=== PATIENT | male | born 1985 ===

== ENCOUNTER 2022-04-29 13:04 | Emergency (ER) | payer OTHER ==
[2022-04-29 14:23] VITALS: TEMP 98.2
--- NOTE | 2022-04-29 15:59 | ED ---
General Adult HPI - General Chief complaint: Psychiatric Symptoms Stated complaint: foot pain Time Seen by Provider: 04/29/22 15:45 Source: patient, RN notes reviewed, old records reviewed Mode of arrival: EMS Limitations: no limitations - History of Present Illness Initial comments: This is a 37 year old male presents emergency department stating that he is multi-substance abuser. Patient states he was a cigarette for 4 days he decided that they were helping enough so he just packed up his stuff and left. Patient states then he uses phone and called 911 to come to the hospital because he wants us to do his rehabilitation here. Patient has no complaint other than he has a callus on the back of his right heel. Patient states that's from walk around on the backs of his shoes. Patient denies any other problems or symptoms. Patient states not homicidal or suicidal. Patient denies delusions or any hallucinations. Patient is alert and oriented 3 - Related Data Allergies Allergy/AdvReac Type Severity Reaction Status Date / Time risperidone [From Risperdal] AdvReac Rash/Hives Verified 04/29/22 14:23 Review of Systems ROS Statement: Those systems with pertinent positive or pertinent negative responses have been documented in the HPI. ROS Other: All systems not noted in ROS Statement are negative. Past Medical History Past Medical History: Hypertension Past Surgical History: No Surgical Hx Reported, Adenoidectomy, Tonsillectomy Past Psychological History: Bipolar Smoking Status: Current every day smoker, Heavy tobacco smoker, Vaper Past Alcohol Use History: None Reported Past Drug Use History: Cocaine, Heroin, IV Drug Use, Marijuana, Methamphetamine, Opiates, Prescription Drug Abuse General Exam - General Exam Comments Initial Comments: GENERAL: Patient is well-developed and well-nourished. Patient is nontoxic and well- hydrated and is in no acute distress. ENT: Neck is soft and supple. No significant lymphadenopathy is noted. Oropharynx is clear. Moist mucous membranes. Neck has full range of motion without eliciting any pain. EYES: The sclera were anicteric and conjunctiva were pink and moist. Extraocular movements were intact and pupils were equal round and reactive to light. Eyelids were unremarkable. PULMONARY: Unlabored respirations. Good breath sounds bilaterally. No audible rales rhonchi or wheezing was noted. CARDIOVASCULAR: There is a regular rate and rhythm without any murmurs gallops or rubs. ABDOMEN: Soft and nontender with normal bowel sounds. SKIN: Skin is clear with no lesions or rashes and otherwise unremarkable. NEUROLOGIC: Patient is alert and oriented x3. Cranial nerves II through XII are grossly intact. Motor and sensory are also intact. Normal speech, volume and content. Symmetrical smile. MUSCULOSKELETAL: Normal extremities with adequate strength and full range of motion. Patient has a callus on the posterior aspect of his right heel LYMPHATICS: No significant lymphadenopathy is noted PSYCHIATRIC: Normal psychiatric evaluation. Patient denies any suicidal homicidal ideations. Patient denies any hallucinations. Limitations: no limitations Course Vital Signs 04/29/22 14:19 Temperature 98.2 F Disposition Clinical Impression: Polysubstance abuse Disposition: HOME SELF-CARE Condition: Good Instructions (If sedation given, give patient instructions): Polysubstance Abuse (ED) Is patient prescribed a controlled substance at d/c from ED?: No Referrals: None,Stated [Primary Care Provider] - 1-2 days Time of Disposition: 15:59
== END 2022-04-29 16:07 | disposition home or self-care (01) ==
LOC: EC 13:04
DX: F19.10 Other psychoactive substance abuse, uncomplicated (principal); I10 Essential (primary) hypertension; F31.9 Bipolar disorder, unspecified; F17.290 Nicotine dependence, other tobacco product, uncomplicated; F12.90 Cannabis use, unspecified, uncomplicated; Z88.8 Allergy status to other drugs, medicaments and biological substances
CPT/HCPCS: 99284

== ENCOUNTER 2022-04-29 20:16 | Emergency (ER) | payer OTHER ==
[2022-04-29 20:23] VITALS: TEMP 98.1
[2022-04-29] MEDS ORDERED: BACITRACIN OINT 1 EACH PACKET TOPICAL ONE (20:55)
--- NOTE | 2022-04-29 21:02 | ED ---
General Adult HPI - General Chief complaint: Psychiatric Symptoms Stated complaint: Mental Health Time Seen by Provider: 04/29/22 20:30 Source: police, RN notes reviewed Mode of arrival: ambulatory Limitations: no limitations - History of Present Illness Initial comments: 37-year-old male presents to the emergency department requesting mental health evaluation. Patient states he has a history of alcohol and substance abuse and has been "working on getting clean." Denies any paranoia or delusions. No suicidal or homicidal thoughts. Also states he has been walking a lot today and has developed a large blister on the heel of his right foot for which he was seen earlier today. Requesting to have it re-evaluated as it continues to be painful. Denies any injury, trauma, redness, swelling, or fevers. - Related Data Allergies Allergy/AdvReac Type Severity Reaction Status Date / Time risperidone [From Risperdal] AdvReac Rash/Hives Verified 04/29/22 20:22 Review of Systems ROS Statement: Those systems with pertinent positive or pertinent negative responses have been documented in the HPI. ROS Other: All systems not noted in ROS Statement are negative. Past Medical History Past Medical History: Hypertension History of Any Multi-Drug Resistant Organisms: None Reported Past Surgical History: Adenoidectomy, Tonsillectomy Past Psychological History: Bipolar Smoking Status: Current every day smoker, Heavy tobacco smoker, Vaper Past Alcohol Use History: None Reported Past Drug Use History: Cocaine, Heroin, IV Drug Use, Marijuana, Methamphetamine, Opiates, Prescription Drug Abuse General Exam Limitations: no limitations (Well-developed, well nourished male in no acute distress.) General appearance: alert, in no apparent distress Respiratory exam: Present: normal lung sounds bilaterally. Absent: respiratory distress, wheezes, rales, rhonchi, stridor Cardiovascular Exam: Present: regular rate, normal rhythm, normal heart sounds. Absent: systolic murmur, diastolic murmur, rubs, gallop, clicks Right Ankle exam: Present: normal inspection, full ROM. Absent: tenderness, swelling Foot/Toe exam: Present: full ROM. Absent: normal inspection (Blister formation under callus on plantar surface of right heel approx 1.5cm in diameter. Fluctuant upon palpation. No surrounding erythema or swelling.) Neurovascular tendon exam: Present: no vascular compromise Neurological exam: Present: alert, oriented X3, CN II-XII intact Psychiatric exam: Present: flat affect Expanded Focused psych exam: Present: restlessness. Absent: delusional, paranoid Skin exam: Present: warm, dry, intact, normal color Course Vital Signs 04/29/22 04/29/22 04/30/22 20:18 21:36 03:00 Temperature 98.1 F Pulse Rate 98 68 81 Respiratory 20 16 17 Rate Blood Pressure 164/103 175/88 152/78 O2 Sat by Pulse 99 99 97 Oximetry Procedures - Procedures Initial comment: Procedure explained and consent obtained. Site was thoroughly cleansed. 22- gauge needle inserted at the base of blister measuring approximately 1.5 cm in diameter. 1.8ml then bloody fluid aspirated without complication or difficulty. Bacitracin dressing applied. Patient instructed on proper wound care and encouraged to obtain well-fitting shoes. Medical Decision Making - Medical Decision Making This is a 37-year-old male with past medical history of polysubstance abuse who presents to the emergency department requesting a mental health evaluation, and for reassessment of the blister on the plantar surface of the right foot. Upon exam, patient is well-appearing and in no acute distress. He denies thoughts of causing harm to himself or anyone else. Denies recent ingestion of a drugs or alcohol. EPS evaluated patient and cleared him for discharge home to follow up on an outpatient basis. Thin bloody fluid was aspirated from base of friction blister. No surrounding erythema or concerns for cellulitis or infection. Bacitracin dressing applied. Patient reports improvement. He will be discharged home with instructions to obtain well fitting shoes and to consider wearing an extra per of socks for additional cushion. Return parameters were discussed in detail. Patient raul downs understanding and agrees with this plan. Attending:Ronnell. - Lab Data Lab Results 04/29/22 Range/Units 21:34 Urine Opiates Screen Not Detected (NotDetected) Ur Oxycodone Screen Not Detected (NotDetected) Urine Methadone Screen Not Detected (NotDetected) Ur Propoxyphene Screen Not Detected (NotDetected) Ur Barbiturates Screen Not Detected (NotDetected) U Tricyclic Antidepress Detected H (NotDetected) Ur Phencyclidine Scrn Not Detected (NotDetected) Ur Amphetamines Screen Not Detected (NotDetected) U Methamphetamines Scrn Not Detected (NotDetected) U Benzodiazepines Scrn Not Detected (NotDetected) Urine Cocaine Screen Not Detected (NotDetected) U Marijuana (THC) Screen Not Detected (NotDetected) Disposition Clinical Impression: Friction blister without infection, Mental health disorder Disposition: HOME SELF-CARE Condition: Stable Instructions (If sedation given, give patient instructions): Blister (ED) Additional Instructions: Do your best to obtain well-fitting shoes and wear dry socks. Monitor for any signs of increased redness or foul smelling drainage from blister. Continue taking your home medications as prescribed. Follow-up with your PCP for a recheck as needed for your blister. See your counselor or mental health provider as scheduled. Return to the emergency department with any new, worsening, or concerning symptoms such as thoughts of causing harm to herself or anyone else. Is patient prescribed a controlled substance at d/c from ED?: No Referrals: None,Stated [Primary Care Provider] - 1-2 days Time of Disposition: 02:57
[2022-04-29 22:26] LABS: Amphetamine Screen,Urine Not Detected (NotDetected); Cocaine Screen,Urine Not Detected (NotDetected); Opiate Screen,Urine Not Detected (NotDetected); Phencyclidine Screen,Urine Not Detected (NotDetected); Tricyclic Antidepressant,Urine Detected (NotDetected); Urn Cannabinoid Scrn Not Detected (NotDetected)
[2022-04-29 22:27] LABS: Barbiturate Screen,Urine Not Detected (NotDetected); Benzodiazepines Screen,Urine Not Detected (NotDetected); Methadone Screen, Urine Not Detected (NotDetected); Oxycodone Screen, Urine Not Detected (NotDetected)
[2022-04-30 03:10] VITALS: BP 152/78; PULSE 81; RESP 17
== END 2022-04-30 03:44 | disposition home or self-care (01) ==
LOC: EC 20:16
DX: S90.821A Blister (nonthermal), right foot, initial encounter (principal); I10 Essential (primary) hypertension; F17.209 Nicotine dependence, unspecified, with unspecified nicotine-induced disorders; Z88.8 Allergy status to other drugs, medicaments and biological substances
CPT/HCPCS: 80306; 82075; 99284